=== PATIENT | male | born 1940 | race Caucasian/White ===

== ENCOUNTER → 2023-10-26 06:41 | Outpatient (REF) | payer MEDICARE, SELFPAY | LOC: RAD 06:41 | PROVIDERS: ATTENDING PHYSICIAN Surgery; FAMILY PHYSICIAN Family Medicine | DX: R19.09 Other intra-abdominal and pelvic swelling, mass and lump (principal); M79.81 Nontraumatic hematoma of soft tissue | CPT/HCPCS: 76882 ==